=== PATIENT | male | born 1955 | race Caucasian/White ===

== ENCOUNTER 2020-05-28 14:53 | Emergency (ER) | payer OTHER ==
[~2020-05-28] VITALS: Ht 185.4 cm; Wt 124.7 kg
[2020-05-28 15:14] LABS: ABSOLUTE NEUTROPHILS 4.9 thou/uL (1.4-8.2); BASOPHILS 0.6 % (0.0-2.0); EOSINOPHILS 1.7 % (0.0-3.0); HEMATOCRIT 45.8 % (42.0-52.0); HEMOGLOBIN 15.1 gm/dL (14.0-18.0); MCH 27.9 pg (26.0-34.0); MCHC 33.1 g/dL (28.0-37.0); MCV 84.4 fL (80.0-100.0); MONOCYTES 6.6 % (1.0-8.0); PLATELET COUNT 253 thou/uL (150-400); POLYS 69.1 % (36.0-66.0); RBC 5.43 mil/uL (4.50-6.00); RDW 13.9 % (10.5-14.5); WBC 7.1 thou/uL (4.0-11.0)
[2020-05-28 15:21] LABS: ANION GAP 10 mmol/L (7-16); BUN 16 mg/dL (7-18); CALCIUM 9.2 mg/dL (8.5-10.1); CHLORIDE 107 mmol/L (98-107); CO2 25 mmol/L (21-32); CREATININE 1.1 mg/dL (0.7-1.3); GLUCOSE 109 mg/dL (74-106); POTASSIUM 4.1 mmol/L (3.5-5.1); SODIUM 142 mmol/L (136-145)
[2020-05-28 15:31] LABS: ALBUMIN 4.1 g/dL (3.4-5.0); SGOT 18 U/L (15-37); SGPT 31 U/L (16-63); TOTAL BILIRUBIN 0.8 mg/dL (0.2-1.0); TOTAL PROTEIN 7.2 g/dL (6.4-8.2); TROPONIN-I <0.06 ng/mL (<0.06)
[2020-05-28 16:38] VITALS: BP 122/76
--- NOTE | 2020-05-29 08:52 | EKG ---
[place] [address] [facility] [place] [address] ELECTROCARDIOGRAM REPORT Name: TONYA SYKES [facility] [id number] Admission: 05/28/20 Attend Phys: Discharge: 05/28/20 Date of : 53 Report #: [id number] [facility] ED Test Date: 2020-05-28 Test Time: 14:55:03 Pat Name: TONAY SYKES Department: Room: Gender: M Boom Man: ALESSIO : 1955 Requested By: Sravani Layne Order Number: [id number] MD: Sha Nevarez Measurements Intervals [place] Rate: 92 P: [place]: QRS: 52 QRSD: 85 T: 61 QT: 351 QTc: 435 Interpretive Statements Atrial fibrillation Low voltage, precordial leads RSR' in V1 or V2, probably normal variant No previous ECG available for comparison Electronically Signed On 05-29-2020 8:52:00 [employer]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
== END 2020-05-28 16:39 | disposition home or self-care (01) ==
LOC: ER 14:53
PROVIDERS: Physician Assistant
DX: R07.89 Other chest pain (principal); R00.2 Palpitations; R11.0 Nausea; Z87.891 Personal history of nicotine dependence; Z85.528 Personal history of other malignant neoplasm of kidney